=== PATIENT | male | born 1990 | race Caucasian/White ===

== ENCOUNTER 2017-01-26 08:17 | Emergency (ER) | payer OTHER ==
[2017-01-26] MEDS ORDERED: CLINDAMYCIN 600 MG/DEXTROSE 50 ML IV ONE (09:07)
[2017-01-26] MEDS ORDERED: DEXAMETHASONE 10 MG/ML VIAL IVP ONE (09:07)
--- NOTE | 2017-01-26 09:07 | EDPHY ---
H & P Time Seen by Provider: 01/26/17 08:45 HPI/ROS: CHIEF COMPLAINT: Sore throat x3 days HISTORY OF PRESENT ILLNESS: 26-year-old immunocompetent male complaining of sore throat x3 days, tender cervical adenopathy.. URI symptoms. No cough. No nuchal rigidity. No change in voice. Decreased oral intake secondary to odynophagia. Normal urine output. Bowel movements normal. No rash. No abdominal or flank pain. No scrotal or testicular pain. REVIEW OF SYSTEMS: A ten point review of systems was performed and is negative with the exception of the items mentioned in the HPI PAST MEDICAL & SURGICAL HISTORY: WPW. IBS. SOCIAL HISTORY:PhD student PHYSICAL EXAM (Prior to examination, patient consented to physical exam, hands were washed and my usual and customary physical exam procedures followed) 1) GENERAL: Well-developed, well-nourished, alert and oriented. Appears to be in no acute distress. 2) HEAD: Normocephalic, atraumatic 3) HEENT: Pupils equal, round, reactive to light bilaterally. Sclera anicteric. Oropharynx: Dry mucous membranes, bilaterally enlarged, symmetrical, exudate of tonsils. No pointing of the uvula. No trismus or drooling. No hot potato voice. Ears bilaterally with normal tympanic membranes. 4) NECK: Full range of motion, no meningeal signs. Tender cervical adenopathy. 5) LUNGS: Clear auscultation bilaterally, no wheezes, no rhonchi, no retractions. 6) HEART: Regular rate and rhythm, no murmur, no heave, no gallop. 7) ABDOMEN: No guarding, no rebound, no focal tenderness, negative McBurney's, negative Keane's, negative Rovsing's, negative peritoneal sign, 8) MUSCULOSKELETAL: Moving all extremities, no focal areas of tenderness, no obvious trauma. No peripheral edema or discoloration. 9) BACK: no visual or palpable abnormality. 10) SKIN: No rash, no petechiae. 11) Psychiatric: Patient is oriented X 3, there is no agitation. DIFFERENTIAL DIAGNOSIS: in no particular include but limited to strep pharyngitis, peritonsillar abscess, retropharyngeal abscess or phlegmon, meningitis, mononucleosis Smoking Status: Never smoked Constitutional: Initial Vital Signs Temperature (C) 37.4 C 01/26/17 08:20 Heart Rate 92 01/26/17 08:20 Respiratory Rate 16 01/26/17 08:20 Blood Pressure 99/69 L 01/26/17 08:20 O2 Sat (%) 99 01/26/17 08:20 O2 Delivery Mode Room Air Allergies/Adverse Reactions: Penicillins Allergy (Verified 01/26/17 08:20) Home Medications: Medication Instructions Recorded AZITHROMYCIN 01/26/17 Clindamycin HCl [Clindamycin] 300 mg PO TID 7 Days cap 01/26/17 Hydrocodone/APAP 5/325 [[place] 1 tab PO Q6 PRN #7 tab 01/26/17 5/325 (RX)] methylPREDNISolone [Medrol Dose 4 mg PO DAILY #1 ea 01/26/17 Robert] MDM/Departure - MDM Medications Given: Discontinued Medications Dexamethasone (Decadron Injection) 10 mg IVP EDNOW ONE Stop: 01/26/17 09:08 Last Admin: 01/26/17 09:29 Dose: 10 mg Clindamycin Phosphate/Dextrose (Cleocin 600 Mg (Premix)) 50 mls @ 100 mls/hr IV EDNOW ONE PRN Reason: Protocol Stop: 01/26/17 09:36 Last Admin: 01/26/17 09:31 Dose: 50 mls Ketorolac Tromethamine (Toradol) 15 mg IVP EDNOW ONE Stop: 01/26/17 09:52 Last Admin: 01/26/17 09:55 Dose: 15 mg ED Course/Re-evaluation: 9:15 a.m.: Doubt peritonsillar abscess or deep space infection. High clinical suspicion for strep pharyngitis. Will obtain Monospot testing as well. He has dry mucous membranes, suspected volume depletion. Will administer IV fluids, IV Decadron, IV clindamycin and re-evaluate. Care of patient under supervision of secondary supervising physician Dr Macdonald . 10:19 a.m.: Re-evaluation. Feeling improvement after IV hydration, IV Decadron. No evidence of peritonsillar abscess. I do not think that emergent ENT consultation or imaging indicated at this time. Magic mouthwash ordered via verbal order to the [facility] pharmacy. Plan will be discharge, follow up with ENT on Sunday (today is Sunday). In the meantime usual and customary pharyngitis precautions instructions provided, discharged with Medrol Dosepak, oral clindamycin. - Depart Disposition: Home, Routine, Self-Care Clinical Impression: Volume depletion, Strep pharyngitis Condition: Good Instructions: Strep Throat (ED) Additional Instructions: Return to the ER immediately if you cannot swallow, have drooling, fevers, neck stiffness, cannot open your jaw, or any other symptoms that concern you. Prescriptions: Clindamycin HCl [Clindamycin] 300 mg PO TID 7 Days cap Hydrocodone/APAP 5/325 [[place] 5/325 (RX)] 1 tab PO Q6 PRN #7 tab PRN Reason: Pain, Severe methylPREDNISolone [Medrol Dose Robert] 4 mg PO DAILY #1 ea Referrals: Katherine Sotry MD [Medical Doctor] - 01/29/17
[2017-01-26] MEDS ORDERED: KETOROLAC 30 MG/1 ML SDV IVP ONE (09:51)
[2017-01-26] MEDS ORDERED: MBX SOLN 30 ML BOTTLE PO ONE (10:30)
[2017-01-26 10:36] VITALS: RESP 20; TEMP 99.1
[2017-01-26 11:17] VITALS: BP 111/82; PULSE 88; O2SAT 95
== END 2017-01-26 11:18 | disposition home or self-care (01) ==
DX: J02.0 Streptococcal pharyngitis (principal); E86.9 Volume depletion, unspecified
CPT/HCPCS: 96365; J1100; J1885

== ENCOUNTER 2017-02-04 09:33 | Emergency (ER) | payer OTHER ==
[2017-02-04 09:48] VITALS: TEMP 99.1
[2017-02-04] MEDS ORDERED: DEXAMETHASONE 4 MG TAB PO ONE (10:46)
[2017-02-04] MEDS ORDERED: CLINDAMYCIN 150 MG CAP PO ONE (10:46)
[2017-02-04] MEDS ORDERED: IBUPROFEN 600 MG TAB PO ONE (10:47)
--- NOTE | 2017-02-04 10:54 | EDPHY ---
H & P Time Seen by Provider: 02/04/17 09:56 HPI/ROS: CHIEF COMPLAINT: Sore throat HISTORY OF PRESENT ILLNESS: 26-year-old male presents to the emergency department with ongoing sore throat. The patient was treated initially with Zithromax nearly 2 weeks ago for positive strep pharyngitis. He did not improve and therefore they changed him to clindamycin 300 mg q.8 hours. He took this as prescribed for 10 days and on the very last day he felt like his symptoms were returning and now has unilateral pain in his throat only on the right side. Denies dysphagia. No fevers or chills. No chest pain or difficulty breathing. No rash. He has had strep multiple times in the past. Denies any other symptoms. REVIEW OF SYSTEMS: Constitutional: No fever, no chills. Eyes: No double or blurry vision. ENT: No sore throat. Respiratory: No cough, no shortness of breath. Cardiac: No chest pain. Gastrointestinal: No abdominal pain, vomiting or diarrhea. Genitourinary: No dysuria. Musculoskeletal: No neck or back pain. Skin: No rashes. Neurological: No headache. Past Medical/Surgical History: Strep pharyngitis Social History: Grad student at [employer] Smoking Status: Never smoked Physical Exam: General Appearance: Alert, no distress. Eyes: Pupils equal and round. Extraocular motions are all intact. ENT: Mouth: Mucous membranes moist. Posterior pharyngeal injection noted with swelling noted to the right tonsil. No uvular shift. No muffled voice or trismus. No obvious peritonsillar abscess. Neck is supple without lymphadenopathy. Respiratory: No wheezing, rhonchi, or rales, lungs are clear to auscultation. Cardiovascular: Regular rate and rhythm. Gastrointestinal: Abdomen is soft and nontender, no masses, no rebound or guarding, bowel sounds normal. Neurological: Alert and oriented x 3, cranial nerves II through XII grossly intact Skin: Warm and dry, no rashes. Musculoskeletal: Nontender to palpate along the cervical, thoracic or lumbar spine. Neck is supple. No nuchal rigidity. Extremities: Full range of motion and no peripheral edema. Psychiatric: Patient is oriented X 3, there is no agitation. Constitutional: Initial Vital Signs Temperature (C) 37.3 C 02/04/17 09:46 Heart Rate 88 02/04/17 09:46 Respiratory Rate 16 02/04/17 09:46 Blood Pressure 101/59 L 02/04/17 09:46 O2 Sat (%) 98 02/04/17 09:46 O2 Delivery Mode Room Air Allergies/Adverse Reactions: Penicillins Allergy (Verified 01/26/17 08:20) Home Medications: Medication Instructions Recorded Clindamycin HCl [Clindamycin] 300 mg PO QID #40 cap 02/04/17 Dexamethasone [Decadron] 8 mg PO DAILY #2 tab 02/04/17 Medical Decision Making ED Course/Re-evaluation: 26-year-old male presents to the emergency department with unilateral sore throat. No evidence of obvious peritonsillar abscess. I did speak with physician household assistant with ENT on-call, Mariaelena Madison. She agrees with restarting clindamycin 300 mg but requested this four times daily. She will see him in follow-up tomorrow. The patient was instructed to return to the emergency department sooner if he developed dysphagia, fever or any other concerns. Patient was given 300 mg clindamycin p. o. in the emergency department as well as 8 mg of Zofran p.o. in the emergency department. Differential Diagnosis: Including but not limited to strep pharyngitis, peritonsillar abscess, mononucleosis, viral syndrome, retropharyngeal abscess - Data Points Medications Given: Discontinued Medications Clindamycin (Clindamycin) 300 mg PO EDNOW ONE PRN Reason: Protocol Stop: 02/04/17 10:47 Last Admin: 02/04/17 10:53 Dose: 300 mg Dexamethasone (Decadron) 8 mg PO EDNOW ONE Stop: 02/04/17 10:47 Last Admin: 02/04/17 10:54 Dose: 8 mg Ibuprofen (Motrin) 600 mg PO EDNOW ONE Stop: 02/04/17 10:48 Last Admin: 02/04/17 10:54 Dose: 600 mg Departure - Departure Disposition: Home, Routine, Self-Care Clinical Impression: Acute pharyngitis Qualifiers: Pharyngitis/tonsillitis etiology: unspecified etiology Qualified Code(s): J02.9 - Acute pharyngitis, unspecified Condition: Good Instructions: Strep Throat (ED) Additional Instructions: Clindamycin 300mg four times daily. Decadron daily today and tomorrow. Follow up with ENT tomorrow. When you call tell them you were seen in the ER and we talked to Mariaelena Madison. Return if you develop difficulty swallowing, difficulty breathing, fever, or if you feel worse in any way. Referrals: Hernando Calderon MD [Medical Doctor] - 1 day without fail (ENT on-call) Dari Gray DO [Doctor of Osteopathy] - As per Instructions (Primary care provider application infrastructure engineer) Darrin Dave MD [place] - As per Instructions (Primary care provider at [facility] Prescriptions: Clindamycin HCl [Clindamycin] 300 mg PO QID #40 cap Dexamethasone [Decadron] 8 mg PO DAILY #2 tab
[2017-02-04 11:36] VITALS: BP 121/66; PULSE 78; RESP 18; O2SAT 92
== END 2017-02-04 11:35 | disposition home or self-care (01) ==
DX: J02.9 Acute pharyngitis, unspecified (principal)